=== PATIENT | female | born 1985 | race Hispanic/Latino ===

== ENCOUNTER 2021-06-19 06:05 | Emergency (ER) | payer SELFPAY ==
[2021-06-19] MEDS ORDERED: Morphine 4 MG/ML VIAL ONE (07:13)
[2021-06-19] MEDS ORDERED: Ondansetron PF 4 MG/2 ML Vial ONE (07:13)
[2021-06-19] MEDS ORDERED: Ketorolac Tromethamine 30 MG/ML VIAL ONE (07:13)
[2021-06-19 07:58] LABS: Pregnancy Test - Urine (BHCG) Negative (Negative); Pregu Control Background? CLEAR/WHITE (CLR/WHITE); Pregu Control Bar Appear? YES (CONTROL BAR); Specific Gravity 1.015 (1.002-1.036)
[2021-06-19 08:00] LABS: Bilirubin Neg (Negative); Blood, Urine 150 (Negative); Clarity Clear (Clear); Glucose, Urine (Dipstick) Normal (Negative); Ketone, Urine Negative (Negative); Leukocyte Negative (Negative); Nitrite Negative (Negative); Protein, Urine (Dipstick) 15 mg/dl (Neg-Trace); Specific Gravity, Urine 1.015 (1.002-1.036); pH, Urine 6.5 (5.0-9.0)
[2021-06-19 08:14] LABS: BHCG - Serum Negative (NEGATIVE); Pregs Control Background? CLEAR/WHITE (CLR/WHITE); Pregs Control Bar Appear? YES (CONTROL BAR)
[2021-06-19 08:21] LABS: #Eosinphils 0.1 10x3/uL (0.0-0.5); #Monocytes 0.4 10x3/uL (0.0-1.1); #Neutrophils 6.5 10x3/uL (1.5-8.4); %Basophils 0.3 % (0.0-2.0); %Eosinophils 0.9 % (0.0-6.0); %Monocytes 4.9 % (0.0-10.0); %Neutrophils 72.6 % (40.0-75.0); Hemoglobin 13.7 g/dL (12.0-15.5); Mean Corpuscular HGB CONC 34.3 g/dL (32.0-36.0); Mean Corpuscular Hemoglobin 31.9 pg (27.0-33.0); Mean Platelet Volume 9.7 fl (7.4-10.4); Platelet Count 279 10x3/uL (150-450); RBC Distribution Width 12.8 % (11.5-14.5); Red Blood Cell (RBC) Count 4.29 10x6/uL (3.90-5.03); White Blood Cell (WBC) Count 8.9 10x3/uL (3.5-10.5)
[2021-06-19 08:23] LABS: ALT (SGPT) 19 U/L (8-55); AST (SGOT) 16 U/L (5-34); Albumin 4.1 g/dL (3.5-5.0); Alkaline Phosphatase 72 U/L (40-110); Anion Gap 12 mmol/L (10-20); BUN (Urea Nitrogen) 8 mg/dL (7.0-18.7); Bilirubin, Total 0.4 mg/dL (0.2-1.2); Calc. Creatinine Clearance 0 mL/min (70-130); Calcium 8.6 mg/dL (7.8-10.44); Carbon Dioxide 24 mmol/L (22-29); Chloride 107 mmol/L (98-107); Globulin 2.8 g/dL (2.4-3.5); Glucose 101 mg/dL (70-105); Lipase 11 U/L (8-78); Potassium 3.6 mmol/L (3.5-5.1); Protein, Total 6.9 g/dL (6.0-8.3); Sodium 139 mmol/L (136-145)
[2021-06-19 08:37] LABS: Bacteria/HPF None Seen HPF (None Seen); Squamous Epithelial 0-3 HPF (0-3); WBC/HPF None Seen HPF (0-3)
== END 2021-06-19 10:15 | disposition home or self-care (01) ==
LOC: CSHERS 06:05
DX: R10.12 Left upper quadrant pain (principal); R31.9 Hematuria, unspecified; I10 Essential (primary) hypertension; F17.210 Nicotine dependence, cigarettes, uncomplicated
CPT/HCPCS: 36415; 74176; 80053; 81003; 81015; 81025; 83690; 84703; 85025; 96374; 96375; J1885; J2270; J2405

== ENCOUNTER 2021-08-15 08:10 | Emergency (ER) | payer SELFPAY ==
[2021-08-15] MEDS ORDERED: Acetaminophen 500 MG TAB ONE (08:46)
[2021-08-15] MEDS ORDERED: Ketorolac Tromethamine 30 MG/ML VIAL ONE (10:14)
[2021-08-15] MEDS ORDERED: Diazepam 5 MG TAB ONE (10:14)
== END 2021-08-15 12:49 | disposition home or self-care (01) ==
LOC: CSHERS 08:10
DX: M54.50 Low back pain, unspecified (principal); I10 Essential (primary) hypertension; F17.210 Nicotine dependence, cigarettes, uncomplicated
CPT/HCPCS: 96372; 99283; J1885

== ENCOUNTER 2022-02-12 20:31 | Emergency (ER) | payer SELFPAY ==
[2022-02-12 21:04] LABS: Bilirubin Neg (Negative); Blood, Urine 250 (Negative); Clarity Slightly Cloudy (Clear); Glucose, Urine (Dipstick) Normal (Negative); Ketone, Urine 5 mg/dL (Negative); Leukocyte Negative (Negative); Nitrite Negative (Negative); Pregnancy Test - Urine (BHCG) Negative (Negative); Pregu Control Background? CLEAR/WHITE (CLR/WHITE); Pregu Control Bar Appear? YES (CONTROL BAR); Protein, Urine (Dipstick) 30 mg/dl (Neg-Trace); Specific Gravity 1.025 (1.002-1.036); Specific Gravity, Urine 1.025 (1.002-1.036); Urobilinogen Normal mg/dL (Less than 2)
[2022-02-12 21:13] LABS: Amphetamine Not Detected (NotDetected); Barbiturates Screen Not Detected (NotDetected); Benzodiazepine Screen Not Detected (NotDetected); Cocaine Metabolite Screen Not Detected (NotDetected); Methadone Not Detected (NotDetected); Methamphetamine Not Detected (NotDetected); Opiate Screen Not Detected (NotDetected); Oxycodone Screen Not Detected (NotDetected); Phencyclidine (PCP) Not Detected (NotDetected); THC/Cannabinoid Screen Detected (NotDetected); Tricyclic Screen Not Detected (NotDetected)
[2022-02-12 21:21] LABS: Bacteria/HPF 1+ HPF (None Seen); Mucous/LPF 1+ LPF (<2+); Squamous Epithelial 0-3 HPF (0-3)
[2022-02-12 21:23] LABS: #Basophils 0.1 10x3/uL (0.0-0.2); #Eosinphils 0.1 10x3/uL (0.0-0.5); #Monocytes 0.7 10x3/uL (0.0-1.1); #Neutrophils 11.1 10x3/uL (1.5-8.4); %Basophils 0.4 % (0.0-2.0); %Eosinophils 0.9 % (0.0-6.0); %Lymphocytes 14.7 % (18.0-47.0); %Monocytes 4.8 % (0.0-10.0); %Neutrophils 78.6 % (40.0-75.0); Hemoglobin 14.9 g/dL (12.0-15.5); Mean Corpuscular HGB CONC 34.8 g/dL (32.0-36.0); Mean Corpuscular Hemoglobin 31.3 pg (27.0-33.0); Mean Corpuscular Volume 89.9 fl (81.6-98.3); Mean Platelet Volume 9.3 fl (7.4-10.4); Platelet Count 273 10x3/uL (150-450); RBC Distribution Width 12.7 % (11.5-14.5); Red Blood Cell (RBC) Count 4.76 10x6/uL (3.90-5.03); White Blood Cell (WBC) Count 14.1 10x3/uL (3.5-10.5)
[2022-02-12 21:35] LABS: ALT (SGPT) 12 U/L (8-55); AST (SGOT) 12 U/L (5-34); Acetaminophen Less than 10.0 mcg/mL (10.0-30.0); Albumin 4.5 g/dL (3.5-5.0); Alcohol Less than 10 mg/dL (Less than 10); Alkaline Phosphatase 69 U/L (40-110); BUN (Urea Nitrogen) 8 mg/dL (7.0-18.7); Bilirubin, Total 0.5 mg/dL (0.2-1.2); CK (CPK) 84 U/L (29-168); Calc. Creatinine Clearance 0 mL/min (70-130); Calcium 9.3 mg/dL (7.8-10.44); Carbon Dioxide 23 mmol/L (22-29); Estimated GFR 108; Globulin 3.2 g/dL (2.4-3.5); Glucose 118 mg/dL (70-105); Protein, Total 7.7 g/dL (6.0-8.3); Salicylate 9.1 mg/dL (15.0-30.0)
[2022-02-12 21:46] LABS: Chloride 109 mmol/L (98-107); Potassium 3.2 mmol/L (3.5-5.1); Sodium 143 mmol/L (136-145)
[2022-02-12] MEDS ORDERED: Ondansetron ODT 4 MG TAB ONE (21:52)
[2022-02-12 21:55] LABS: Anion Gap 14 mmol/L (10-20)
[2022-02-13 01:14] LABS: SARS-CoV-2 NAA Rapid Test Not Detected (NotDetected)
[2022-02-13] MEDS ORDERED: Ondansetron ODT 4 MG TAB ONE (04:49)
[2022-02-13] MEDS ORDERED: Nicotine 14 MG PATCH ONE (08:00)
== END 2022-02-13 09:11 ==
LOC: CSHERS 20:31
DX: T39.312A Poisoning by propionic acid derivatives, intentional self-harm, initial encounter (principal); F17.210 Nicotine dependence, cigarettes, uncomplicated; I10 Essential (primary) hypertension; Z79.899 Other long term (current) drug therapy; Z20.822 Contact with and (suspected) exposure to COVID-19
CPT/HCPCS: 36415; 80053; 80306; 80307; 81003; 81015; 81025; 82550; 84443; 85025; 99285; Q0162; U0002

== ENCOUNTER 2022-06-27 08:50 | Emergency (ER) | payer SELFPAY ==
[2022-06-27 09:33] LABS: #Basophils 0.1 10x3/uL (0.0-0.2); #Eosinphils 0.2 10x3/uL (0.0-0.5); #Monocytes 0.5 10x3/uL (0.0-1.1); #Neutrophils 5.8 10x3/uL (1.5-8.4); %Basophils 0.6 % (0.0-2.0); %Lymphocytes 24.3 % (18.0-47.0); %Monocytes 5.9 % (0.0-10.0); %Neutrophils 66.9 % (40.0-75.0); Hemoglobin 14.5 g/dL (12.0-15.5); Mean Corpuscular HGB CONC 35.1 g/dL (32.0-36.0); Mean Corpuscular Volume 91.2 fl (81.6-98.3); Mean Platelet Volume 9.2 fl (7.4-10.4); Platelet Count 269 10x3/uL (150-450); RBC Distribution Width 12.9 % (11.5-14.5); Red Blood Cell (RBC) Count 4.53 10x6/uL (3.90-5.03); White Blood Cell (WBC) Count 8.6 10x3/uL (3.5-10.5)
[2022-06-27 09:45] LABS: BHCG - Serum Negative (NEGATIVE); Pregs Control Background? CLEAR/WHITE (CLR/WHITE); Pregs Control Bar Appear? YES (CONTROL BAR)
[2022-06-27 09:48] LABS: Bilirubin Neg (Negative); Blood, Urine 150 (Negative); Clarity Clear (Clear); Glucose, Urine (Dipstick) Normal (Negative); Ketone, Urine Negative (Negative); Leukocyte Negative (Negative); Nitrite Negative (Negative); Protein, Urine (Dipstick) Negative (Neg-Trace)
[2022-06-27 09:51] LABS: ALT (SGPT) 13 U/L (8-55); AST (SGOT) 14 U/L (5-34); Albumin 4.2 g/dL (3.5-5.0); Alkaline Phosphatase 76 U/L (40-110); Anion Gap 13 mmol/L (10-20); BUN (Urea Nitrogen) 8 mg/dL (7.0-18.7); Bilirubin, Total 0.7 mg/dL (0.2-1.2); Calc. Creatinine Clearance 0 mL/min (70-130); Calcium 9.1 mg/dL (7.8-10.44); Carbon Dioxide 22 mmol/L (22-29); Chloride 107 mmol/L (98-107); Estimated GFR 106; Globulin 3.1 g/dL (2.4-3.5); Glucose 95 mg/dL (70-105); Lipase 10 U/L (8-78); Potassium 3.5 mmol/L (3.5-5.1); Protein, Total 7.3 g/dL (6.0-8.3); Sodium 138 mmol/L (136-145)
[2022-06-27 09:55] LABS: Bacteria/HPF Rare-Few HPF (None Seen); Squamous Epithelial 0-3 HPF (0-3); WBC/HPF 0-3 HPF (0-3)
[2022-06-27] MEDS ORDERED: Dicyclomine 20 MG/2 ML VIAL ONE (11:33)
[2022-06-27] MEDS ORDERED: Promethazine HCl 25 MG/ML VIAL ONE (11:33)
== END 2022-06-27 12:20 | disposition home or self-care (01) ==
LOC: CSHERS 08:50
DX: B34.9 Viral infection, unspecified (principal); I10 Essential (primary) hypertension; F17.210 Nicotine dependence, cigarettes, uncomplicated
CPT/HCPCS: 80053; 81003; 81015; 83690; 84703; 85025; 96372; 99284; J2550

== ENCOUNTER 2022-07-30 06:59 | Emergency (ER) | payer SELFPAY ==
[2022-07-30 07:26] LABS: #Eosinphils 0.3 10x3/uL (0.0-0.5); #Monocytes 0.3 10x3/uL (0.0-1.1); #Neutrophils 3.7 10x3/uL (1.5-8.4); %Basophils 0.3 % (0.0-2.0); %Eosinophils 4.5 % (0.0-6.0); %Lymphocytes 23.7 % (18.0-47.0); %Monocytes 5.9 % (0.0-10.0); %Neutrophils 65.1 % (40.0-75.0); Mean Corpuscular HGB CONC 35.1 g/dL (32.0-36.0); Mean Corpuscular Hemoglobin 31.7 pg (27.0-33.0); Mean Corpuscular Volume 90.5 fl (81.6-98.3); Mean Platelet Volume 9.2 fl (7.4-10.4); Platelet Count 223 10x3/uL (150-450); RBC Distribution Width 12.8 % (11.5-14.5); Red Blood Cell (RBC) Count 4.41 10x6/uL (3.90-5.03); White Blood Cell (WBC) Count 5.7 10x3/uL (3.5-10.5)
[2022-07-30 07:36] LABS: BHCG - Serum Negative (NEGATIVE); Pregs Control Background? CLEAR/WHITE (CLR/WHITE); Pregs Control Bar Appear? YES (CONTROL BAR)
[2022-07-30 07:46] LABS: ALT (SGPT) 15 U/L (8-55); AST (SGOT) 16 U/L (5-34); Albumin 4.3 g/dL (3.5-5.0); Alkaline Phosphatase 72 U/L (40-110); Anion Gap 14 mmol/L (10-20); BUN (Urea Nitrogen) 5 mg/dL (7.0-18.7); Bilirubin, Total 0.5 mg/dL (0.2-1.2); Calc. Creatinine Clearance 0 mL/min (70-130); Calcium 8.7 mg/dL (7.8-10.44); Carbon Dioxide 23 mmol/L (22-29); Chloride 106 mmol/L (98-107); Estimated GFR 102; Globulin 2.7 g/dL (2.4-3.5); Glucose 167 mg/dL (70-105); Lipase 9 U/L (8-78); Potassium 3.1 mmol/L (3.5-5.1); Sodium 140 mmol/L (136-145)
== END 2022-07-30 08:00 | disposition home or self-care (01) ==
LOC: CSHERS 06:59
DX: N92.0 Excessive and frequent menstruation with regular cycle (principal); I10 Essential (primary) hypertension; F17.210 Nicotine dependence, cigarettes, uncomplicated
CPT/HCPCS: 36415; 80053; 83690; 84703; 85025; 99284

== ENCOUNTER 2022-08-22 11:38 | Emergency (ER) | payer SELFPAY ==
[2022-08-22 12:25] LABS: #Eosinphils 0.3 10x3/uL (0.0-0.5); #Monocytes 0.7 10x3/uL (0.0-1.1); #Neutrophils 5.1 10x3/uL (1.5-8.4); %Basophils 0.5 % (0.0-2.0); %Monocytes 7.5 % (0.0-10.0); %Neutrophils 59.5 % (40.0-75.0); Hemoglobin 9.4 g/dL (12.0-15.5); Mean Corpuscular HGB CONC 33.3 g/dL (32.0-36.0); Mean Corpuscular Hemoglobin 30.1 pg (27.0-33.0); Mean Corpuscular Volume 90.4 fl (81.6-98.3); Mean Platelet Volume 9.6 fl (7.4-10.4); Platelet Count 318 10x3/uL (150-450); RBC Distribution Width 12.6 % (11.5-14.5); Red Blood Cell (RBC) Count 3.12 10x6/uL (3.90-5.03); White Blood Cell (WBC) Count 8.6 10x3/uL (3.5-10.5)
[2022-08-22 12:34] LABS: BHCG - Serum Negative (NEGATIVE); Pregs Control Background? CLEAR/WHITE (CLR/WHITE); Pregs Control Bar Appear? YES (CONTROL BAR)
[2022-08-22 12:43] LABS: ALT (SGPT) 9 U/L (8-55); AST (SGOT) 11 U/L (5-34); Albumin 3.8 g/dL (3.5-5.0); Alkaline Phosphatase 46 U/L (40-110); Anion Gap 10 mmol/L (10-20); BUN (Urea Nitrogen) 7 mg/dL (7.0-18.7); Bilirubin, Total 0.4 mg/dL (0.2-1.2); Calc. Creatinine Clearance 0 mL/min (70-130); Calcium 8.4 mg/dL (7.8-10.44); Carbon Dioxide 23 mmol/L (22-29); Chloride 110 mmol/L (98-107); Estimated GFR 116; Globulin 2.7 g/dL (2.4-3.5); Glucose 84 mg/dL (70-105); Lipase 15 U/L (8-78); Potassium 3.4 mmol/L (3.5-5.1); Protein, Total 6.5 g/dL (6.0-8.3); Sodium 140 mmol/L (136-145)
[2022-08-22] MEDS ORDERED: Morphine 4 MG/ML VIAL ONE (12:52)
[2022-08-22] MEDS ORDERED: Ondansetron PF 4 MG/2 ML Vial ONE (12:52)
[2022-08-22 13:15] LABS: Bilirubin Neg (Negative); Blood, Urine 50 (Negative); Clarity Clear (Clear); Glucose, Urine (Dipstick) Normal (Negative); Ketone, Urine Negative (Negative); Leukocyte Negative (Negative); Nitrite Negative (Negative); Protein, Urine (Dipstick) 15 mg/dl (Neg-Trace); Specific Gravity, Urine 1.015 (1.005-1.030); pH, Urine 6.5 (5.0-9.0)
[2022-08-22 13:25] LABS: Bacteria/HPF 2+ HPF (None Seen); Mucous/LPF 4+ LPF (<2+)
[2022-08-22] MEDS ORDERED: medroxyPROGESTERone Acetate 5 MG TAB PO SCH (14:15)
[2022-08-22] MEDS ORDERED: Acetaminophen 500 MG TAB ONE (15:09)
== END 2022-08-22 15:51 | disposition home or self-care (01) ==
LOC: CSHERS 11:38
DX: N93.8 Other specified abnormal uterine and vaginal bleeding (principal); I10 Essential (primary) hypertension; F17.210 Nicotine dependence, cigarettes, uncomplicated
CPT/HCPCS: 76856; 80053; 81003; 81015; 83690; 84703; 85025; 86850; 86900; 86901; 96361; 96374; 96375; J2270; J2405

== ENCOUNTER 2022-08-26 12:42 | Emergency (ER) | payer SELFPAY ==
[2022-08-26] MEDS ORDERED: Ondansetron PF 4 MG/2 ML Vial ONE (13:21)
[2022-08-26 13:35] LABS: BHCG - Serum Negative (NEGATIVE); Pregs Control Background? CLEAR/WHITE (CLR/WHITE); Pregs Control Bar Appear? YES (CONTROL BAR)
[2022-08-26 13:36] LABS: PTT 23.6 sec (22.0-33.0); Prothrombin Time 10.5 sec (9.5-12.1)
[2022-08-26 13:38] LABS: #Basophils 0.1 10x3/uL (0.0-0.2); #Eosinphils 0.3 10x3/uL (0.0-0.5); #Monocytes 0.7 10x3/uL (0.0-1.1); #Neutrophils 6.7 10x3/uL (1.5-8.4); %Basophils 0.6 % (0.0-2.0); %Eosinophils 2.8 % (0.0-6.0); %Lymphocytes 21.9 % (18.0-47.0); %Monocytes 6.9 % (0.0-10.0); %Neutrophils 67.2 % (40.0-75.0); Hemoglobin 8.7 g/dL (12.0-15.5); Mean Corpuscular HGB CONC 32.6 g/dL (32.0-36.0); Mean Corpuscular Hemoglobin 29.5 pg (27.0-33.0); Mean Corpuscular Volume 90.5 fl (81.6-98.3); Mean Platelet Volume 9.6 fl (7.4-10.4); Platelet Count 421 10x3/uL (150-450); Red Blood Cell (RBC) Count 2.95 10x6/uL (3.90-5.03); White Blood Cell (WBC) Count 9.9 10x3/uL (3.5-10.5)
[2022-08-26 13:42] LABS: ALT (SGPT) 10 U/L (8-55); AST (SGOT) 11 U/L (5-34); Albumin 3.8 g/dL (3.5-5.0); Alkaline Phosphatase 47 U/L (40-110); Anion Gap 13 mmol/L (10-20); BUN (Urea Nitrogen) 9 mg/dL (7.0-18.7); Bilirubin, Total 0.4 mg/dL (0.2-1.2); Calc. Creatinine Clearance 0 mL/min (70-130); Calcium 8.6 mg/dL (7.8-10.44); Carbon Dioxide 22 mmol/L (22-29); Chloride 111 mmol/L (98-107); Estimated GFR 113; Globulin 2.7 g/dL (2.4-3.5); Glucose 106 mg/dL (70-105); Potassium 3.8 mmol/L (3.5-5.1); Protein, Total 6.5 g/dL (6.0-8.3); Sodium 142 mmol/L (136-145)
[2022-08-26] MEDS ORDERED: Acetaminophen 500 MG TAB ONE (14:19)
== END 2022-08-26 15:18 | disposition home or self-care (01) ==
LOC: CSHERS 12:42
DX: N92.0 Excessive and frequent menstruation with regular cycle (principal); I10 Essential (primary) hypertension; F17.210 Nicotine dependence, cigarettes, uncomplicated
CPT/HCPCS: 36415; 80053; 84703; 85025; 85610; 85730; 86850; 86900; 86901; 96361; 96374; J2405

== ENCOUNTER 2023-03-02 23:55 | Emergency (ER) | payer SELFPAY ==
[2023-03-03] MEDS ORDERED: Boostrix 0.5 ML (Tdap) VIAL (>/=7 yrs of age) ONE (00:34)
[2023-03-03 00:37] LABS: #Eosinphils 0.1 10x3/uL (0.0-0.5); #Monocytes 0.4 10x3/uL (0.0-1.1); #Neutrophils 7.2 10x3/uL (1.5-8.4); %Basophils 0.4 % (0.0-2.0); %Eosinophils 0.8 % (0.0-6.0); %Lymphocytes 14.5 % (18.0-47.0); %Monocytes 4.1 % (0.0-10.0); %Neutrophils 79.4 % (40.0-75.0); Hematocrit 41.8 % (34.9-44.5); Hemoglobin 13.5 g/dL (12.0-15.5); Mean Corpuscular HGB CONC 32.3 g/dL (32.0-36.0); Mean Corpuscular Hemoglobin 27.4 pg (27.0-33.0); Mean Platelet Volume 10.1 fl (7.4-10.4); Platelet Count 274 10x3/uL (150-450); RBC Distribution Width 14.9 % (11.5-14.5); Red Blood Cell (RBC) Count 4.92 10x6/uL (3.90-5.03); White Blood Cell (WBC) Count 9.1 10x3/uL (3.5-10.5)
[2023-03-03 00:41] LABS: BHCG - Serum Negative (NEGATIVE); Pregs Control Background? CLEAR/WHITE (CLR/WHITE); Pregs Control Bar Appear? YES (CONTROL BAR)
[2023-03-03 00:48] LABS: ALT (SGPT) 13 U/L (8-55); AST (SGOT) 18 U/L (5-34); Albumin 4.5 g/dL (3.5-5.0); Alkaline Phosphatase 78 U/L (40-110); Anion Gap 20 mmol/L (10-20); BUN (Urea Nitrogen) 7 mg/dL (7.0-18.7); Bilirubin, Total 0.3 mg/dL (0.2-1.2); Calc. Creatinine Clearance 0 mL/min (70-130); Calcium 8.7 mg/dL (7.8-10.44); Carbon Dioxide 19 mmol/L (22-29); Chloride 107 mmol/L (98-107); Estimated GFR 99; Globulin 3.1 g/dL (2.4-3.5); Glucose 129 mg/dL (70-105); Potassium 2.9 mmol/L (3.5-5.1); Protein, Total 7.6 g/dL (6.0-8.3); Sodium 143 mmol/L (136-145)
== END 2023-03-03 02:22 | disposition home or self-care (01) ==
LOC: CSHERS 23:55
DX: S00.83XA Contusion of other part of head, initial encounter (principal); F17.210 Nicotine dependence, cigarettes, uncomplicated; Y04.8XXA Assault by other bodily force, initial encounter
CPT/HCPCS: 36415; 70450; 70486; 80053; 84703; 85025; 90471; 90715